=== PATIENT | female | born 1995 | race Caucasian/White ===

== ENCOUNTER 2021-05-02 18:02 | Observation (INO) | payer BC, SELFPAY ==
--- NOTE | ~2021-05-02 | MR_ITS ---
EXAMINATION: MR BRAIN WITHOUT AND WITH CONTRAST CLINICAL INFORMATION: Edema seen on CT head COMPARISON: CT scan of the head 05/02/2021. TECHNIQUE: Multiplanar, multisequence MRI of the brain was obtained before and after the intravenous administration of 8 mL Gadavist. FINDINGS: No diffusion abnormalities are identified to suggest an acute or subacute infarct. No mass effect or midline shift is seen. The ventricles are normal in size. Brain parenchymal signal is unremarkable. The hippocampi are symmetric in size and signal. No extra-axial fluid collections are seen. The brainstem appears normal. On postcontrast imaging, there is no abnormal parenchymal or leptomeningeal enhancement. No pathologic magnetic susceptibility artifact is identified on the gradient refocused acquisition. The cerebellar tonsils have normal contour and position, and the craniocervical junction appears normal. Marrow signal and midline structures are normal. The major intracranial flow-voids at the level of the [place] are preserved. The dural venous sinus flow-voids are maintained. There are a few nonspecific lymph nodes in the parotid glands. There are multiple small cysts in the left fossa of [place]. The nasal septum is significantly deviated to the left with a left-sided bony nasal septal spur. There is a perforation in the anterior nasal septum. The mastoid air cells are well-aerated. There is trace mucoperiosteal thickening in the inferior left maxillary sinus and in the anterior bilateral ethmoid air cells. MR/MR head/brain wo/w con IMPRESSION: 1. There are no acute bleeds or infarcts. Brain parenchymal signal appears normal. There are no masses or areas of abnormal enhancement. 2. There is a nasal septal perforation. Recommend CT scan of the paranasal sinuses for further assessment.
--- NOTE | ~2021-05-02 | CT_ITS ---
EXAMINATION: CT HEAD WITHOUT CONTRAST CLINICAL INFORMATION: Status post fall with seizure COMPARISON: None TECHNIQUE: Contiguous axial imaging was performed from the skull base to vertex without intravenous administration of contrast. This CT examination was performed using dose optimization techniques as appropriate, variously including the following: *Automated exposure control *Adjustment of mA and/or kV according to patient size (this includes techniques or standardized protocols for targeted exams where dose is matched to indication/reason for exam; i.e. extremities or head) *Use of iterative reconstruction technique DLP: 630 mGy-cm FINDINGS: There relatively subtle areas of hypoattenuation within the right middle frontal gyrus (image 47, series 2 as well as the bilateral superior frontal gyri (image 36, series 2) with loss of alexandre-white differentiation. There is no evidence of acute intracranial hemorrhage or extended findings of an acute territorial infarction. No abnormal mass effect or midline shift is seen. Alexandre to white matter differentiation is otherwise well preserved. No extra-axial fluid collections are identified. The ventricles are normal in size. There is no abnormal attenuation within the brain parenchyma. The osseous structures and soft tissues are normal. The mastoid air cells and visualized portions of the paranasal sinuses are well aerated. CT/CT head/brain wo con IMPRESSION: Subtle areas of hypoattenuation and loss of alexandre-white differentiation within the right middle frontal gyrus and bilateral superior frontal gyri without mass effect. Whether these represent areas of edema or other pathology is uncertain and further evaluation with contrast-enhanced MRI is recommended. Findings were communicated with Dr. Mills by Dr. Sánchez by telephone at approximately 2030 hours.
[2021-05-02 18:37] VITALS: BP 151/94; PULSE 102; RESP 18; TEMP 36.1; O2SAT 100; BMI 28.3
--- NOTE | 2021-05-02 19:33 | ED_ITS ---
HPI - Seizure General Chief Complaint: Seizure Stated Complaint: fall Time Seen by Provider: 05/02/21 19:33 Source: patient Mode of arrival: ambulatory Limitations: no limitations History of Present Illness HPI Narrative: Patient with history of seizure since age 15 used to take Depakote , had no seizures for last 5 years hence off Depakote since then, Last year when she had no seizures, today while she is in the room she felt funny and neck since she found herself on the floor found by her roommate crying, patient was postictal and confused. No significant injuries noticed patient complaining of mild headache no fever no chills no vomiting Related Data Allergies Allergy/AdvReac Type Severity Reaction Status Date / Time No Known Allergies Allergy Verified 05/02/21 19:44 Review of Systems Review of Systems: Yes all other systems are reviewed and are negative [facility] Past Medical History Medical History Anemia Seizure Social History Social History Advance Directives: No Advance Directives Information Provided: Yes Physical Exam Vital Signs: Vital Signs: Last Vital Signs Temp 98.6 F 05/02/21 20:48 Pulse 91 05/02/21 20:48 Resp 18 05/02/21 20:48 BP 146/87 H 05/02/21 20:48 Pulse Ox 98 05/02/21 20:48 Body Mass Index 28.3 Appearance: Alert. Oriented X3. No acute distress. Eyes: PERRLA, No Nystagmus ENT: Pharynx normal. Oral Mucosa moist Neck: Normal inspection. Neck supple. CVS: Normal heart rate and rhythm. Pulses normal. Respiratory: No respiratory distress. Equal air entry bilateral, no wheezing/rales/rhonchi Abdomen: Soft and nontender. Bowel sounds are present, no mass palpable, no CVA tenderness Skin: Skin warm and dry. Normal skin color. Normal skin turgor. Extremities: No lower extremity edema. No calf tenderness Neuro: Oriented X 3. No motor deficit. No sensory deficit.No cerebellar signs , cranial nerves II-XII intact MDM - Seizure MDM Narrative Medical decision making narrative: Patient with history of epilepsy with epileptic seizure after 1 year of not taking the medicine and had no seizure in last [address] scan showed slight edema etiology is not clear likely 2ndry to seizures case discussed Dr. Gong neurologist advised MRI in the morning. Will start patient on Depakote meanwhile Lab Data Attestation: I reviewed the patient's lab results. Result diagrams: 05/02/21 21:32 05/02/21 21:32 Labs: Lab Results 05/02/21 05/02/21 05/02/21 Range/Units 21:32 21:32 21:32 WBC 12.9 H (4.8-10.8) X10*3/uL RBC 4.84 (4.20-5.50) X10*6/uL Hgb 15.5 (12.0-16.0) g/dl Hct 44.8 (37-47) % MCV 92.6 (80-98) fL MCH 32.0 (27.0-33.0) pg MCHC 34.6 (31.0-35.0) g/dl RDW 12.8 (11.0-16.0) % Plt Count 370 (160-400) X10*3/uL MPV 10.9 (9.4-12.3) fL Immature Gran % (Auto) 0.5 H (0.0-0.4) % Neut % (Auto) 70.7 (45-73) % Lymph % (Auto) 22.7 (20-40) % [place] % (Auto) 5.6 (2-11) % Eos % (Auto) 0.3 (0-4) % Baso % (Auto) 0.2 (0-2) % Lymph # (Auto) 2.9 (1.2-4.9) X10*3/uL [place] # (Auto) 0.7 (0.1-1.2) X10*3/uL Eos # (Auto) 0.0 (0.0-0.4) X10*3/uL Baso # (Auto) 0.0 (0.0-0.2) X10*3/uL Abs Immat Gran (auto) 0.07 H (0.00-0.03) X10*3/uL Absolute Neuts (auto) 9.1 H (2.0-8.3) X10*3/uL Absolute Nucleated RBC 0.000 (0.0-0.012) X10*3/uL Nucleated RBC % (auto) 0.0 (0.0-0.2) /100WBC Sodium 139 (135-145) mmol/L Potassium 4.5 (3.3-5.1) mmol/L Chloride 103 (96-108) mmol/L Carbon Dioxide 20 L (22-29) mmol/L Anion Gap 21 H (12-20) BUN 8 L (9-16) mg/dL Creatinine 0.66 (0.5-1.4) mg/dL Estim Creat Clear Calc 136.1 Estimated GFR > 60 Random Glucose 85 (60-115) mg/dL Calcium 10.2 (8.4-10.2) mg/dL Total Bilirubin 0.5 (0.0-1.0) mg/dL Direct Bilirubin < 0.2 (0.0-0.5) mg/dL AST 36 H (5-31) U/L ALT 44 H (0-31) U/L Alkaline Phosphatase 112 (39-117) U/L Total Protein 8.6 H (6.5-8.0) g/dL Albumin 4.8 (3.5-5.0) g/dL Beta HCG, Quant < 2 mIU/mL COVID-19 (RUBIO) Negative (Negative) COVID-19 Clin Com See Note Imaging Data CT scan - head: Radiologist's impression: [place] [id number] CT Scan Report Signed Patient: Reanna Aguilera MR#: [id number] : 1995 Acct:[id number] Age/Sex: 25 / F ADM Date: 05/02/21 Loc: HO.ED Attending Dr: Ordering Physician: Harry Leal MD Date of Service: 05/02/21 Procedure(s): CT head/brain wo con Accession Number(s): [id number] cc: Harry Leal MD~ EXAMINATION: CT HEAD WITHOUT CONTRAST CLINICAL INFORMATION: Status post fall with seizure? COMPARISON: None TECHNIQUE: Contiguous axial imaging was performed from the skull base to vertex without intravenous administration of contrast. This CT examination was performed using dose optimization techniques as appropriate, variously including the following: *Automated exposure control *Adjustment of mA and/or kV according to patient size (this includes techniques or standardized protocols for targeted exams where dose is matched to indication/reason for exam; i.e. extremities or head) *Use of iterative reconstruction technique DLP: 630 mGy-cm FINDINGS: There relatively subtle areas of hypoattenuation within the right middle frontal gyrus (image 47, series 2 as well as the bilateral superior frontal gyri (image 36, series 2) with loss of alexandre-white differentiation. There is no evidence of acute intracranial hemorrhage or extended findings of an acute territorial infarction. No abnormal mass effect or midline shift is seen. Alexandre to white matter differentiation is otherwise well preserved. No extra-axial fluid collections are identified. The ventricles are normal in size. There is no abnormal attenuation within the brain parenchyma. The osseous structures and soft tissues are normal. The mastoid air cells and visualized portions of the paranasal sinuses are well aerated. ? CT/CT head/brain wo con IMPRESSION: Subtle areas of hypoattenuation and loss of alexandre-white differentiation within the right middle frontal gyrus and bilateral superior frontal gyri without mass effect. Whether these represent areas of edema or other pathology is uncertain and further evaluation with contrast-enhanced MRI is recommended. ? Findings were communicated with Dr. Mlils by Dr. Sánchez by telephone at approximately 2039 hours. Dictated By: Ankur Sánchez MD Signed By: <Electronically signed by Ankur Sánchez MD in OV> 05/02/212044 DD/ 44 TD/TT:? Oil Heat Technician: JEREMIAH Discharge Plan Discharge Clinical Impression: Epileptic seizure Qualifiers: Epilepsy type: epileptic spasms Intractability: not intractable Status epilepticus: without status epilepticus Qualified Code(s): G40.822 - Epileptic spasms, not intractable, without status epilepticus Patient Disposition: Admitted As Inpatient
[2021-05-02 20:48] VITALS: BP 146/87; PULSE 91; RESP 18; TEMP 37; O2SAT 98
[2021-05-02] MEDS: Divalproex Sodium 500 MG TABLET.DR 1000 MG PO (21:38)
[2021-05-02 21:56] LABS: MANUAL DIFF FLAG NO
[2021-05-02 21:59] LABS: Basophils Percent Auto 0.2 % (0-2); Eosinophils Percent Auto 0.3 % (0-4); Hematocrit 44.8 % (37-47); Hemoglobin 15.5 g/dl (12.0-16.0); Imm Gran Abs Auto 0.07 X10*3/uL (0.00-0.03); Imm Gran Pct Auto 0.5 % (0.0-0.4); Lymphocytes Absolute Auto 2.9 X10*3/uL (1.2-4.9); Lymphocytes Percent Auto 22.7 % (20-40); Mean Corpuscular HGB Conc 34.6 g/dl (31.0-35.0); Mean Corpuscular Volume 92.6 fL (80-98); Mean Platelet Volume 10.9 fL (9.4-12.3); Monocytes Absolute Auto 0.7 X10*3/uL (0.1-1.2); Monocytes Percent Auto 5.6 % (2-11); Neutrophils Absolute Auto 9.1 X10*3/uL (2.0-8.3); Neutrophils Percent Auto 70.7 % (45-73); Platelet Count 370 X10*3/uL (160-400); Red Blood Count 4.84 X10*6/uL (4.20-5.50); Red Cell Distribution Width 12.8 % (11.0-16.0); White Blood Count 12.9 X10*3/uL (4.8-10.8)
[2021-05-02 22:12] LABS: COVID-19 Test Negative (Negative); IDNOW Serial# 55D5AD1C
[2021-05-02 22:20] LABS: Alanine Aminotransferase 44 U/L (0-31); Albumin Level 4.8 g/dL (3.5-5.0); Alkaline Phosphatase 112 U/L (39-117); Anion Gap 21 (12-20); Aspartate Amino Transferase 36 U/L (5-31); Bilirubin Direct < 0.2 mg/dL (0.0-0.5); Bilirubin Total 0.5 mg/dL (0.0-1.0); Blood Urea Nitrogen 8 mg/dL (9-16); Calcium 10.2 mg/dL (8.4-10.2); Carbon Dioxide 20 mmol/L (22-29); Chloride 103 mmol/L (96-108); Creatinine Clr Calc Pharmacy 136.1; Estimated Glomerular Filt Rate > 60; Glucose Random 85 mg/dL (60-115); Potassium 4.5 mmol/L (3.3-5.1); Sodium 139 mmol/L (135-145); Total Protein 8.6 g/dL (6.5-8.0)
[2021-05-02 22:21] LABS: HCG Quantitative < 2 mIU/mL
--- NOTE | 2021-05-02 22:25 | P.HPHOSP_ITS ---
History of Present Illness Date of Service: 05/02/21 Chief Complaint: Seizure episode 25-year-old female with a history of epilepsy since age of 15 who presents to the hospital with possible seizure episode. Patient reports that she has had epilepsy since she was 15, but was well under control on Depakote 500 b.i.d.. About a year ago her neurologist and herself decided to discontinue medication as patient had no seizure activity for 3+ years with serial EEGs showing no abnormality. Today, patient was getting ready to go to her classes when her roommate heard a loud Bang, 5 minutes later patient came about and was confuse and making no sense. Patient spoke to her neurologist who advised her to come to the ED for further evaluation of possible concussion. Patient currently denies any headache, change in vision, no abdominal pain nausea or vomiting, no diarrhea, no urinary symptoms and no lower extremity edema. No numbness tingling or weakness. On arrival to the ED hemodynamically stable with no significant abnormal vitals Labs are significant for WBC count of 12.9, otherwise unremarkable. Has CT done in the ED showed subtle areas of hypoattenuation and loss of vargas- white differentiation within the right middle frontal gyrus and bilateral superior frontal gyri without mass effect. Whether these represents areas of edema or other pathologies uncertain and further evaluation with MRI is recommended This was discussed with Neurology and recommended admission for MRI Review of Systems Review of Systems: Yes all other systems are reviewed and are negative [facility] Medical History Anemia Seizure Social History Advance Directives: No Advance Directives Information Provided: Yes Meds Allergies Allergy/AdvReac Type Severity Reaction Status Date / Time No Known Allergies Allergy Verified 05/02/21 19:44 Physical Exam Vital Signs and Narrative: Vital Signs: Last Vital Signs Temp 98.6 F 05/02/21 20:48 Pulse 91 05/02/21 20:48 Resp 18 05/02/21 20:48 BP 146/87 H 05/02/21 20:48 Pulse Ox 98 05/02/21 20:48 Body Mass Index 28.3 Const: General: cooperative and no acute distress Orientation/consciousness: patient oriented x3 Eyes: General: appearance normal, both eyes and all related structures Pupils: Equal, round and reactive pupils present Resp: Effort & Inspection: normal respiratory effort Auscultation: clear to auscultation bilaterally Cardio: Rate: regular rate Rhythm: regular rhythm GI: Palpation (GI): Soft to palpation Auscultation: normal bowel sounds Skin: General skin exam: no rashes or lesions noted Neuro: Other: No neurological deficit General: patient oriented x3 Cranial nerves: Yes Equal, round and reactive pupils present Cognition (Neuro): normal cognition Extrem: General: Yes normal to inspection and Yes no pedal edema Results Labs CBC and Chem 7: 05/02/21 21:32 05/02/21 21:32 Labs: Laboratory Results - last 24 hr 05/02/21 05/02/21 05/02/21 21:32 21:32 21:32 MCV 92.6 MCH 32.0 MCHC 34.6 RDW 12.8 Plt Count 370 MPV 10.9 Immature Gran % (Auto) 0.5 H Neut % (Auto) 70.7 Lymph % (Auto) 22.7 [place] % (Auto) 5.6 Eos % (Auto) 0.3 Baso % (Auto) 0.2 Lymph # (Auto) 2.9 [place] # (Auto) 0.7 Eos # (Auto) 0.0 Baso # (Auto) 0.0 Abs Immat Gran (auto) 0.07 H Absolute Neuts (auto) 9.1 H Absolute Nucleated RBC 0.000 Nucleated RBC % (auto) 0.0 Anion Gap 21 H Estim Creat Clear Calc 136.1 Estimated GFR > 60 Random Glucose 85 Calcium 10.2 Total Bilirubin 0.5 Direct Bilirubin < 0.2 AST 36 H ALT 44 H Alkaline Phosphatase 112 Total Protein 8.6 H Albumin 4.8 Beta HCG, Quant < 2 COVID-19 ([facility]BIO) Negative COVID-19 Clin Com See Note Imaging Radiologist's Impressions: Impressions Head CT 05/02/21 19:45 IMPRESSION: Subtle areas of hypoattenuation and loss of vargas-white differentiation within the right middle frontal gyrus and bilateral superior frontal gyri without mass effect. Whether these represent areas of edema or other pathology is uncertain and further evaluation with contrast-enhanced MRI is recommended. Findings were communicated with Dr. Mills by Dr. Sánchez by telephone at approximately 2037 hours. Assessment and Plan (1) Abnormal head CT: Status: Acute (2) Epileptic seizure: Qualifiers: Epilepsy type: epileptic spasms Intractability: not intractable Status epilepticus: without status epilepticus Qualified Code(s): G40.822 - Epileptic spasms, not intractable, without status epilepticus Status: Acute This is a 25-year-old female with past medical history of epilepsy presents with seizure episode found to have abnormal findings on has CT # epileptic seizure - history of epilepsy since childhood - has been off her medications for the past 1 year due to no seizures for 2-3 year, this is the silva was made with her neurologist - at this time will admit her for evaluation of abnormal head CT - she wants to discuss restarting medications with her neurologist - will hold off on starting her medications at this time unless has recurrent seizure while inpatient # abnormal head CT - head CT findings as above - will order MRI for AM DVT prophylaxis: Early ambulation Quality Stroke Does the patient have a stroke diagnosis?: No VTE Prior VTE?: No VTE Risk Level:: Medical - low VTE Device Contraindication: Treatment Not Indicated VTE Drug Contraindication: Treatment Not Indicated
[2021-05-03] VITALS: BP 138/97; PULSE 88; RESP 16; TEMP 36.3; O2SAT 98
--- NOTE | 2021-05-03 00:34 | PC.NURSE ---
Seizure pads applied to the side bed rails. PT is resting comfortably in bed with family in the room. PT denies any dizziness or LOC. PT is aware of plan to admit to medical floor. Waiting on bed assignment.
[2021-05-03] MEDS: Acetaminophen 325 MG TABLET 650 MG PO (01:12)
[2021-05-03] MEDS: 0.9 % Sodium Chloride Flush 3 ML SYRINGE IVFLUSH (01:13)
--- NOTE | 2021-05-03 01:52 | PC.NURSE ---
PT transferred to hospital bed. Ambulated to restroom prior to lying down to go to sleep. PT is calm and cooperative, respirations even and unlabored, in NAD.
[2021-05-03 06:33] VITALS: BP 123/69; PULSE 94; RESP 14; TEMP 36.6; O2SAT 98
[2021-05-03 06:51] LABS: MANUAL DIFF FLAG NO
[2021-05-03 06:58] LABS: Basophils Percent Auto 0.3 % (0-2); Eosinophils Absolute Auto 0.2 X10*3/uL (0.0-0.4); Eosinophils Percent Auto 1.6 % (0-4); Hematocrit 41.7 % (37-47); Hemoglobin 14.2 g/dl (12.0-16.0); Imm Gran Abs Auto 0.04 X10*3/uL (0.00-0.03); Imm Gran Pct Auto 0.4 % (0.0-0.4); Lymphocytes Absolute Auto 4.3 X10*3/uL (1.2-4.9); Lymphocytes Percent Auto 43.7 % (20-40); Mean Corpuscular HGB Conc 34.1 g/dl (31.0-35.0); Mean Corpuscular Hemoglobin 31.6 pg (27.0-33.0); Mean Corpuscular Volume 92.7 fL (80-98); Mean Platelet Volume 10.9 fL (9.4-12.3); Monocytes Absolute Auto 0.8 X10*3/uL (0.1-1.2); Monocytes Percent Auto 8.4 % (2-11); Neutrophils Absolute Auto 4.5 X10*3/uL (2.0-8.3); Neutrophils Percent Auto 45.6 % (45-73); Platelet Count 349 X10*3/uL (160-400); Red Cell Distribution Width 12.8 % (11.0-16.0); White Blood Count 9.8 X10*3/uL (4.8-10.8)
[2021-05-03 07:26] LABS: Anion Gap 13 (12-20); Blood Urea Nitrogen 9 mg/dL (9-16); Calcium 9.7 mg/dL (8.4-10.2); Carbon Dioxide 23 mmol/L (22-29); Chloride 108 mmol/L (96-108); Creatinine Clr Calc Pharmacy 136.1; Estimated Glomerular Filt Rate > 60; Glucose Random 86 mg/dL (60-115); Potassium 4.2 mmol/L (3.3-5.1); Sodium 140 mmol/L (135-145)
--- NOTE | 2021-05-03 07:47 | PHA.MEDREC ---
Pharmacy Consult ? Medication Reconciliation Pharmacy has completed the medication reconciliation. Patient reports she will not need here control inpatient since she is on the placebo week. Bibi Marshall, TrudyD
--- NOTE | 2021-05-03 09:43 | MHC.CM.PN ---
Met with patient and mother in regards to discharge planning. Patient lives with 2 roommates, ambualtes independently and had no services prior to coming to the hospital. PCP verified as Dr Margarita Park at [facility]. Patient denies having a HCP. Information provided. Patient not interested in completing one at this time. Patient received 2nd Moderna vaccine in September. Patient's mother will transport her home when medically stable. Obs notice explained and signed. Continue to monitor for d/c needs.
[2021-05-03] MEDS: Divalproex Sodium 500 MG TABLET.DR PO (10:56)
--- NOTE | 2021-05-03 13:22 | P.DS_ITS ---
DS: Providers Provider Date of Service: 05/03/21 Date of admission: 05/02/21 22:18 Primary care physician: Unknown Physician Consults: 05/03/21 00:59 Consult to Neurology Routine Consulting Provider: [facility] Reason for consultation: Seizure Has provider been notified: Yes DS: Diagnosis Discharge Diagnosis (1) Abnormal head CT: Status: Acute (2) Seizure: Status: Acute DS: Summary Hospital Course Hospital Course: Admission note HPI 25-year-old female with a history of epilepsy since age of 15 who presents to the hospital with possible seizure episode.? Patient reports that she has had epilepsy since she was 15, but was well under control on Depakote 500 b.i.d..? About a year ago her neurologist and herself decided to discontinue medication as patient had no seizure activity for 3+ years with serial EEGs showing no abnormality.? Today, patient was getting ready to go to her classes when her roommate heard a loud Bang, 5 minutes later patient came about and was confuse and making no sense.? Patient spoke to her neurologist who advised her to come to the ED for further evaluation of possible concussion. Patient currently denies any headache, change in vision, no abdominal pain nausea or vomiting, no diarrhea, no urinary symptoms and no lower extremity edema.? No numbness tingling or weakness.? On arrival to the ED hemodynamically stable with no significant abnormal vitals Labs are significant for WBC count of 12.9, otherwise unremarkable. Has CT done in the ED showed subtle areas of hypoattenuation and loss of vargas- white differentiation within the right middle frontal gyrus and bilateral superior frontal gyri without mass effect.? Whether these represents areas of edema or other pathologies uncertain and further evaluation with MRI is recommended Hospital course The patient was admitted from emergency after sustaining a possible syncope VS seizure event at home. She was in her normal mental status at time of presentation. CT scan of the head was concerning for possible haziness between the white and vargas matter but an MRI was done and did not find any acute findings. Patient was started on valproic acid which was her home medication 1 year ago. Evaluated by neurologist Dr. Conway who recommended to discharge her home on valproic acid and follow-up with her neurologist as outpatient. Time Spent with Patient Time attestation: Total time spent providing and/or coordinating discharge services: Discharge coordination time: Greater than 30 minutes Quality: Stroke Does the patient have a stroke diagnosis?: No Physical Exam Vital Signs: Vital Signs: Last Vital Signs Temp 97.8 F 05/03/21 06:33 Pulse 94 05/03/21 06:33 Resp 14 05/03/21 06:33 BP 123/69 05/03/21 06:33 Pulse Ox 98 05/03/21 06:33 Body Mass Index 28.3 Const: Other: Constitutional : Alert, oriented, not in distress Neck : Normal inspection, Supple Cardiovascular : RRR, S1 S2, no lower extremity edema Respiratory : Good bilateral air entry, no crackles, wheezes or rhonchi Gastrointestinal: soft, lax, Normal bowel sounds, Non tender Skin : Warm, Dry Neurological : Alert & oriented x3, No focal deficit DS: Data Data Completed and Pending Labs on day of discharge: Laboratory Results - last 24 hr 05/02/21 05/02/21 05/02/21 21:32 21:32 21:32 WBC 12.9 H RBC 4.84 Hgb 15.5 Hct 44.8 MCV 92.6 MCH 32.0 MCHC 34.6 RDW 12.8 Plt Count 370 MPV 10.9 Immature Gran % (Auto) 0.5 H Neut % (Auto) 70.7 Lymph % (Auto) 22.7 [place] % (Auto) 5.6 Eos % (Auto) 0.3 Baso % (Auto) 0.2 Lymph # (Auto) 2.9 [place] # (Auto) 0.7 Eos # (Auto) 0.0 Baso # (Auto) 0.0 Abs Immat Gran (auto) 0.07 H Absolute Neuts (auto) 9.1 H Absolute Nucleated RBC 0.000 Nucleated RBC % (auto) 0.0 Sodium 139 Potassium 4.5 Chloride 103 Carbon Dioxide 20 L Anion Gap 21 H BUN 8 L Creatinine 0.66 Estim Creat Clear Calc 136.1 Estimated GFR > 60 Random Glucose 85 Calcium 10.2 Total Bilirubin 0.5 Direct Bilirubin < 0.2 AST 36 H ALT 44 H Alkaline Phosphatase 112 Total Protein 8.6 H Albumin 4.8 Beta HCG, Quant < 2 COVID-19 (RUBIO) Negative COVID-19 Clin Com See Note 05/03/21 05/03/21 06:43 06:43 WBC 9.8 RBC 4.50 Hgb 14.2 Hct 41.7 MCV 92.7 MCH 31.6 MCHC 34.1 RDW 12.8 Plt Count 349 MPV 10.9 Immature Gran % (Auto) 0.4 Neut % (Auto) 45.6 Lymph % (Auto) 43.7 H [place] % (Auto) 8.4 Eos % (Auto) 1.6 Baso % (Auto) 0.3 Lymph # (Auto) 4.3 [place] # (Auto) 0.8 Eos # (Auto) 0.2 Baso # (Auto) 0.0 Abs Immat Gran (auto) 0.04 H Absolute Neuts (auto) 4.5 Absolute Nucleated RBC 0.000 Nucleated RBC % (auto) 0.0 Sodium 140 Potassium 4.2 Chloride 108 Carbon Dioxide 23 Anion Gap 13 BUN 9 Creatinine 0.66 Estim Creat Clear Calc 136.1 Estimated GFR > 60 Random Glucose 86 Calcium 9.7 Total Bilirubin Direct Bilirubin AST ALT Alkaline Phosphatase Total Protein Albumin Beta HCG, Quant COVID-19 (RUBIO) COVID-19 Clin Com Discharge Plan Discharge Patient Disposition: Home, Self-Care Referrals: Physician,Unknown [Primary Care Provider] - 1 Week Discharge Medications: New divalproex 500 mg Tablet,Delayed Release (Dr/Ec) 500 mg PO BID 30 Days Qty: 60 RF: 0 Continued fluticasone propionate 50 mcg/actuation [place],Suspension 2 spray INTRANASAL DAILY RF: 0 loratadine [Claritin] 10 mg Tablet 10 mg PO DAILY PRN (Reason: Allergy Symptoms) RF: 0 levonorgestrel-ethinyl estrad 0.15 mg-30 mcg (91) Tablets,Dose Pack,3 Month 1 tab PO DAILY RF: 0 Discharge Orders: Discharge Order (Routine); Ordered 05/03/21 Ordered By: Cesilia Borjas Diet: advance to usual diet Activity on Discharge: As tolerated Stand Alone Forms: Patient Portal Discharge page Care Plan Goals: Read below Health Concerns: Read below Plan of Treatment: You were evaluated in the hospital for an episode of syncope VS seizure. CT scan and MRI of the brain did not show any acute events. Your symptoms were contributed to possible seizure and you were started on valproic acid. No recurrence of the seizure noted. Evaluated by neurologist who recommended to start divalproex again and to follow-up with your neurologist as outpatient Assessment: Start divalproex as prescribed To follow-up with your neurologist as outpatient.
--- NOTE | 2021-05-03 17:34 | P.CNNE_ITS ---
History of Present Illness Data of Consult Service Date: 05/03/21 Primary Care Provider: Unknown Physician HPI Reason for consult: Episode of loss of consciousness with probable seizure and amnesia for 15 This is a 25-year-old woman with a history of seizure disorder treated by neurologist and the [facility]. She's had a total of 6 seizures in her lifetime starting around age 10. She was initially treated with the limit told, but it did not control her seizures and she was subsequently switched to Depakote 500 twice a day, which she tolerated well and stayed on it today year ago. She had not had any seizures in more than 5 years. She presented because she had loss of consciousness. She was in her apartment and remembers opening the refrigerator door and the next thing she remembers is sitting in a chair at the table in the kitchen with her roommate present. The roommate apparently heard her fall and heard some noises and came in and found her on the floor in the kitchen with the refrigerator open. She was unresponsive and it took a while to come to. She was helped to a chair but remained amnesic and somewhat slow in her responses. There was no tongue biting or incontinence. She now feels back to her baseline. She had an MRI of the brain which was unremarkable. Review of Systems Review of Systems: Yes all other systems are reviewed and are negative PMFSH Past Medical History Medical History (Updated 05/03/21 @ 13:23 by Cesilia Borjas MD) Anemia Seizure Social History Social History service: No Current occupational status: student Meds Allergies Allergy/AdvReac Type Severity Reaction Status Date / Time No Known Allergies Allergy Verified 05/02/21 19:44 Home Medications Medication Instructions Recorded Confirmed Last Taken Type fluticasone propionate 50 2 spray INTRANASAL DAILY 05/03/21 05/03/21 Unknown History mcg/actuation nasal spray,suspension levonorgestrel 0.15 mg-ethinyl 1 tab PO DAILY 05/03/21 05/03/21 Unknown History estradiol 30 mcg tablets,3 mos pack(91) loratadine 10 mg tablet (Claritin) 10 mg PO DAILY PRN 05/03/21 05/03/21 Unknown History Physical Exam Vital Signs: Vital Signs: Last Vital Signs Temp 97.8 F 05/03/21 06:33 Pulse 94 05/03/21 06:33 Resp 14 05/03/21 06:33 BP 123/69 05/03/21 06:33 Pulse Ox 98 05/03/21 06:33 Body Mass Index 28.3 Const: Other: Constitutional : Alert, oriented, not in distress Neck : Normal inspection, Supple Cardiovascular : RRR, S1 S2, no lower extremity edema Respiratory : Good bilateral air entry, no crackles, wheezes or rhonchi Gastrointestinal: soft, lax, Normal bowel sounds, Non tender Skin : Warm, Dry Neurological : Alert & oriented x3, No focal deficit General: cooperative and no acute distress Orientation/consciousness: patient oriented x3 Eyes: General: appearance normal, both eyes and all related structures Pupils: Equal, round and reactive pupils present Resp: Effort & Inspection: normal respiratory effort Auscultation: clear to auscultation bilaterally Cardio: Rate: regular rate Rhythm: regular rhythm GI: Palpation (GI): Soft to palpation Auscultation: normal bowel sounds Skin: General skin exam: no rashes or lesions noted Neuro: Other: No neurological deficits With nonfocal examination General: patient oriented x3 Cranial nerves: Yes Equal, round and reactive pupils present Cognition (Neuro): normal cognition Extrem: General: Yes normal to inspection and Yes no pedal edema Results Labs CBC & Chem 7: 05/03/21 06:43 05/03/21 06:43 Labs: Short CBC 05/02/21 05/03/21 Range/Units 21:32 06:43 WBC 12.9 H 9.8 (4.8-10.8) X10*3/uL Hgb 15.5 14.2 (12.0-16.0) g/dl Hct 44.8 41.7 (37-47) % Plt Count 370 349 (160-400) X10*3/uL BMP 05/02/21 05/03/21 21:32 06:43 Sodium 139 140 Potassium 4.5 4.2 Chloride 103 108 Carbon Dioxide 20 L 23 BUN 8 L 9 Creatinine 0.66 0.66 Calcium 10.2 9.7 Liver Function 05/02/21 Range/Units 21:32 Total Bilirubin 0.5 (0.0-1.0) mg/dL Direct Bilirubin < 0.2 (0.0-0.5) mg/dL AST 36 H (5-31) U/L ALT 44 H (0-31) U/L Alkaline Phosphatase 112 (39-117) U/L Albumin 4.8 (3.5-5.0) g/dL Assessment and Plan (1) Seizure: Status: Acute This is a 25-year-old female with past medical history of epilepsy presents with seizure episode With normal brain MRI # epileptic seizure - history of epilepsy since childhood - has been off Depakote 500 mg twice a day for the past 1 year due to no seizures for 3 year, I discussed treatment options with her and she has chosen to restart her Depakote 500 mg twwice a day and will followup with a neurologist in [place], [place] and is aware of that teratogenic effects of Depakote with . I did give her the alternative of starting Keppra but she will make that decision after she discusses it with her neurologist Procedures Date of Service Date of Service: 05/03/21
== END 2021-05-03 14:45 | disposition home or self-care (01) ==
LOC: HO.ED 20:00 → HO.EDOVER 22:25 → HO.S3 05-03 12:31 → HO.EDOVER 05-03 14:03
PROVIDERS: Admitting Provider Internal Medicine; Emergency Provider Internal Medicine; PCP Radiology Diagnostic Radiology; Visit Provider Student in an Organized Health Care Education/Training Program
DX: R93.0 Abnormal findings on diagnostic imaging of skull and head, not elsewhere classified (principal); G40.822 Epileptic spasms, not intractable, without status epilepticus; Z91.81 History of falling; Z20.822 Contact with and (suspected) exposure to COVID-19; Z79.899 Other long term (current) drug therapy
CPT/HCPCS: 36415; 70450; 70553; 80048; 80076; 84702; 85025; 87635; 96374; 96375; 99219; 99284; 99285; A9585